=== PATIENT | male | born 1955 | race African-American/Black ===

== ENCOUNTER 2019-03-03 10:43 | Emergency (ER) | payer MEDICARE ==
[~2019-03-03] VITALS: Ht 154.9 cm; Wt 59.0 kg
[~2019-03-03 10:43] MED LIST: FINASTERIDE5 MG ORAL; FLOMAX0.4 MG ORAL; NKM; NORVASC5 MG ORAL
[2019-03-03] MEDS ORDERED: D5NS 1,000 ML IV ONE (10:45)
--- NOTE | 2019-03-03 10:45 | NUR ---
ED Nurse Note: Pt came into ER by ambulance with a c/o abdominal pain with diarrhea, vomiting, and nausea since this morning. Pt states a pain score of 8 on numeric scale. no repiratory distress or cardiac distress noted. Patient placed on husbandry person.
--- NOTE | 2019-03-03 10:46 | NUR ---
ED Nurse Note: ERMD at bedside.
--- NOTE | 2019-03-03 10:49 | NUR ---
ED Nurse Note: EKG being done at bedside.
--- NOTE | 2019-03-03 10:55 | Emergency Room Report ---
History of Present Illness General Chief Complaint: Abdominal Pain Source: Patient Present Illness HPI 64-year-old male history of hypertension, valve repair in the past presents with nausea vomiting diarrhea x1 day no aggravating leaving factors, he endorses some abdominal cramps severity is mild, intermittent no blood in the diarrhea, he endorses some chills but no fevers, no cough no congestion no chest pain patient presents for evaluation Allergies: Coded Allergies: No Known Allergies (Verified , 03/21/10) Patient History Past Medical History: see triage record Reviewed Nursing Documentation: PMH: Agreed; PSxH: Agreed Nursing Documentation-PMH Hx Cardiac Problems: No Hx Hypertension: Yes Hx Cancer: No Hx Gastrointestinal Problems: No - Enlarge Prostate Hx Neurological Problems: Yes Hx Cerebrovascular Accident: Yes - 2008 Hx Transient Ischemic Attacks: Yes Review of Systems All Other Systems: negative except mentioned in HPI Physical Exam Vital Signs Date Time Temp Pulse Resp B/P (MAP) Pulse Ox O2 Delivery O2 Flow Rate FiO2 03/03/19 10:26 97.9 70 19 196/100 (132) 92 Room Air Sp02 EP Interpretation: reviewed, normal General Appearance: well appearing, no apparent distress, alert Head: normocephalic, atraumatic Eyes: bilateral eye PERRL, bilateral eye EOMI ENT: uvula midline, dry mucus membranes Neck: supple, thyroid normal, supple/symm/no masses Respiratory: lungs clear, no respiratory distress, no retraction, no accessory muscle use Cardiovascular #1: normal peripheral pulses, regular rate, rhythm, no edema, no gallop, no murmur Gastrointestinal: non tender, soft, no guarding, no rebound Musculoskeletal: normal inspection Neurologic: alert, oriented x3 Psychiatric: mood/affect normal Skin: no rash, warm/dry Medical Decision Making Diagnostic Impression: Primary Impression: Gastroenteritis ER Course 64-year-old male presents with vague abdominal pain concerning for possible gastroenteritis versus diverticulitis versus cholelithiasis versus appendicitis Patient given fluid rehydration, labs nonfocal Patient found to have no acute processes on CT patient most likely with a viral gastroenteritis Abdominal return precautions discussed Supportive care follow-up with PCP Laboratory Tests Test 03/03/19 11:00 03/03/19 12:50 White Blood Count 7.6 K/UL (4.8-10.8) Red Blood Count 6.61 M/UL (4.70-6.10) H Hemoglobin 18.3 G/DL (14.2-18.0) *H Hematocrit 55.7 % (42.0-52.0) H Mean Corpuscular Volume 84 FL (80-99) Mean Corpuscular Hemoglobin 27.6 PG (27.0-31.0) Mean Corpuscular Hemoglobin Concent 32.8 G/DL (32.0-36.0) Red Cell Distribution Width 11.4 % (11.6-14.8) L Platelet Count 127 K/UL (150-450) L Mean Platelet Volume 9.0 FL (6.5-10.1) Neutrophils (%) (Auto) % (45.0-75.0) Lymphocytes (%) (Auto) % (20.0-45.0) Monocytes (%) (Auto) % (1.0-10.0) Eosinophils (%) (Auto) % (0.0-3.0) Basophils (%) (Auto) % (0.0-2.0) Differential Total Cells Counted 100 Neutrophils % (Manual) 90 % (45-75) H Lymphocytes % (Manual) 8 % (20-45) L Monocytes % (Manual) 2 % (1-10) Eosinophils % (Manual) 0 % (0-3) Basophils % (Manual) 0 % (0-2) Band Neutrophils 0 % (0-8) Platelet Estimate Decreased L Platelet Morphology Normal Red Blood Cell Morphology Normal Sodium Level 143 MMOL/L (136-145) Potassium Level 4.0 MMOL/L (3.5-5.1) Chloride Level 105 MMOL/L (98-107) Carbon Dioxide Level 29 MMOL/L (21-32) Anion Gap 9 mmol/L (5-15) Blood Urea Nitrogen 12 mg/dL (7-18) Creatinine 0.9 MG/DL (0.55-1.30) Estimate Glomerular Filtration Rate > 60 mL/min (>60) Glucose Level 143 MG/DL (74-106) H Calcium Level 8.6 MG/DL (8.5-10.1) Total Bilirubin 1.2 MG/DL (0.2-1.0) H Direct Bilirubin 0.3 MG/DL (0.0-0.3) Aspartate Amino Transferase (AST) 24 U/L (15-37) Alanine Aminotransferase (ALT) 33 U/L (12-78) Alkaline Phosphatase 108 U/L (46-116) Total Protein 7.2 G/DL (6.4-8.2) Albumin 3.9 G/DL (3.4-5.0) Globulin 3.3 g/dL Albumin/Globulin Ratio 1.2 (1.0-2.7) Lipase 64 U/L (73-393) L Urine Color Pale yellow Urine Appearance Clear Urine pH 8 (4.5-8.0) Urine Specific [place] 1.010 (1.005-1.035) Urine Protein Negative (NEGATIVE) Urine Glucose (UA) Negative (NEGATIVE) Urine Ketones 1+ (NEGATIVE) H Urine Blood Negative (NEGATIVE) Urine Nitrite Negative (NEGATIVE) Urine Bilirubin Negative (NEGATIVE) Urine Urobilinogen Normal MG/DL (0.0-1.0) Urine Leukocyte Esterase Negative (NEGATIVE) Microbiology Date/Time Source Procedure Growth Status 03/03/19 11:00 Nasal Nares - Final Complete 03/03/19 11:00 Nasal Nares - Final Complete EKG Diagnostic Results EKG Time: 10:49 EP Interpretation: NSR, rate 82, QTc 457, no acute ST elevations, right axis dev Rhythm Strip Diag. Results Rhythm Strip Time: 10:55 EP Interpretation: yes Rate: 82 Rhythm: NSR, no PVC's, no ectopy CT/MRI/US Diagnostic Results CT/MRI/US Diagnostic Results : Impression Procedure: CT Abdomen Pelvis w/Contrast Indication: Abdominal pain Technique: Continuous helical transaxial imaging of the abdomen and pelvis was obtained from the lung bases to the pubic symphysis during intravenous contrast administration. Coronal 2-D reformats were also obtained. Study obtained in a Siemens sensation [address] Automatic Exposure Control was utilized. Total Dose length Product (DLP): 658.[address] Dose Index Volume (CTDIvol): 4.3 mGy Comparison: None Findings: The lung bases are clear. There is a moderate scoliosis of the thoracolumbar spine. Multiple gallstones are noted. There is a hiatal hernia. Excreted contrast demonstrated within the collecting system bilaterally. This precludes identification of small stones within the kidney or collecting system. No obvious abnormalities of the pancreas spleen or liver are identified. The appendix is seen and appears normal. There is no evidence of bowel obstruction, free fluid or free air. Aorta is mildly calcified. Tiny hypodensity in the right kidney is too small to characterize adequately. There is a left inguinal hernia containing fat. There may be mild thickening of the wall the urinary bladder. IMPRESSION: Cholelithiasis Normal appendix Left inguinal hernia containing fat. Thickened urinary bladder wall. Consider cystitis. Atherosclerotic vascular disease Moderate scoliosis Small hiatal hernia Tiny hypodensity in the right kidney too small to characterize The CT scanner at [facility] is accredited by the [employer] and the scans are performed using dose optimization techniques as appropriate to a performed exam including Automatic Exposure control. Dictated By: Mike Gamino MD Electronically Signed By: Mike Gamino MD Signed Date/Time 03/03/19 4270 CC: Aman Kumar MD Last Vital Signs Date Time Temp Pulse Resp B/P (MAP) Pulse Ox O2 Delivery O2 Flow Rate FiO2 03/03/19 10:26 97.9 70 19 196/100 (132) 92 Room Air Disposition: HOME, SELF-CARE Condition: Stable Scripts Dicyclomine Hcl* (DICYCLOMINE HCL*) 10 Mg Capsule 10 MG ORAL QID PRN for Abdominal cramps, #20 CAP Prov: Aman Kumar MD 03/03/19 Referrals: [facility]. [facility] Patient Instructions: Abdominal Pain, Adult, Viral Gastroenteritis, Adult Additional Instructions: The patient was provided with discharge instructions, notified to follow-up with a primary care doctor and or specialist in the next 24-48 hours, and to return to the ED if they have worsening of their symptoms. Please note that this report is being documented using [employer] (formerly [employer]) technology. This can lead to erroneous entry secondary to incorrect interpretation by the dictating instrument. Aman Kumar MD Mar 03, 2019 10:55
[2019-03-03] MEDS ORDERED: Dicyclomine HCl 10mg/5ml oral soln ORAL ONE (11:00)
[2019-03-03] MEDS ORDERED: Omnipaque-300 100ml vial INJ PRN (11:00)
[2019-03-03 11:17] LABS: HEMATOCRIT 55.7 % (42.0-52.0); MEAN CORPUSCULAR VOLUME 84 FL (80-99); PLATELET COUNT 127 K/UL (150-450); RED BLOOD COUNT 6.61 M/UL (4.70-6.10); RED CELL DISTRIBUTION WIDTH 11.4 % (11.6-14.8); WHITE BLOOD COUNT 7.6 K/UL (4.8-10.8)
[2019-03-03 11:20] LABS: HEMOGLOBIN 18.3 G/DL (14.2-18.0)
--- NOTE | 2019-03-03 11:25 | NUR ---
ED Nurse Note: RN called [facility] pharmacy at [facility] and obtained patient's medication. Given to HAYLEE Bass.
--- NOTE | 2019-03-03 11:25 | NUR ---
ED Nurse Note: Zofran 4mg IVP wasted.
[2019-03-03 11:40] VITALS: BP 189/99
[2019-03-03 11:40] LABS: ANION GAP 9 mmol/L (5-15); BLOOD UREA NITROGEN 12 mg/dL (7-18); CALCIUM 8.6 MG/DL (8.5-10.1); CARBON DIOXIDE 29 MMOL/L (21-32); CHLORIDE 105 MMOL/L (98-107); CREATININE 0.9 MG/DL (0.55-1.30); SODIUM 143 MMOL/L (136-145)
[2019-03-03 11:52] LABS: ALANINE AMINOTRANSFERASE 33 U/L (12-78); ALBUMIN 3.9 G/DL (3.4-5.0); ALBUMIN/GLOBULIN RATIO 1.2 (1.0-2.7); ALKALINE PHOSPHATASE 108 U/L (46-116); ASPARTATE AMINO TRANSFERASE 24 U/L (15-37); BILIRUBIN,TOTAL 1.2 MG/DL (0.2-1.0)
[2019-03-03 11:53] LABS: BILIRUBIN,DIRECT 0.3 MG/DL (0.0-0.3)
--- NOTE | 2019-03-03 11:53 | NUR ---
ED Nurse Note: Pt BP: 189/99 and asymptomatic. Pt stated he didnt take his BP medication this morning. ERMD Dr. Kumar made aware. Educated patient to take at home blood pressure medications per MD order.
--- NOTE | 2019-03-03 12:12 | NUR ---
to ct scan via [facility]
[2019-03-03 13:00] VITALS: BP 168/97
--- NOTE | 2019-03-03 13:12 | Diagnostic Imaging Report ---
Indication: Abdominal pain Technique: Continuous helical transaxial imaging of the abdomen and pelvis was obtained from the lung bases to the pubic symphysis during intravenous contrast administration. Coronal 2-D reformats were also obtained. Study obtained in a Siemens sensation [address] Automatic Exposure Control was utilized. Total Dose length Product (DLP): 658.[address] Dose Index Volume (CTDIvol): 4.3 mGy Comparison: None Findings: The lung bases are clear. There is a moderate scoliosis of the thoracolumbar spine. Multiple gallstones are noted. There is a hiatal hernia. Excreted contrast demonstrated within the collecting system bilaterally. This precludes identification of small stones within the kidney or collecting system. No obvious abnormalities of the pancreas spleen or liver are identified. The appendix is seen and appears normal. There is no evidence of bowel obstruction, free fluid or free air. Aorta is mildly calcified. Tiny hypodensity in the right kidney is too small to characterize adequately. There is a left inguinal hernia containing fat. There may be mild thickening of the wall the urinary bladder. IMPRESSION: Cholelithiasis Normal appendix Left inguinal hernia containing fat. Thickened urinary bladder wall. Consider cystitis. Atherosclerotic vascular disease Moderate scoliosis Small hiatal hernia Tiny hypodensity in the right kidney too small to characterize The CT scanner at [facility] is accredited by the [employer] and the scans are performed using dose optimization techniques as appropriate to a performed exam including Automatic Exposure control.
[2019-03-03 13:38] LABS: APPEARANCE,URINE CLEAR; BILIRUBIN, URINE NEGATIVE (NEGATIVE); COLOR,URINE PALE YELLOW; GLUCOSE, URINE (UA) NEGATIVE (NEGATIVE); KETONES,URINE 1+ (NEGATIVE); LEUKOCYTE ESTERASE ,URINE NEGATIVE (NEGATIVE); NITRITE,URINE NEGATIVE (NEGATIVE); PH,URINE 8 (4.5-8.0); PROTEIN,URINE NEGATIVE (NEGATIVE); UROBILINOGEN,URINE NORMAL MG/DL (0.0-1.0)
--- NOTE | 2019-03-03 13:38 | NUR ---
Lorrie sterling in EDM - 03/03/19 at 1343 by SHERIN ED Nurse Note: Caregiver, Fatou here with patient.
--- NOTE | 2019-03-03 13:41 | NUR ---
ED Nurse Note: Pt is aaox4, no signs of respiratory and cardiovascular distress noted. Patient lying in bed and pt states pain is a 4 out of 10.
[2019-03-03] MEDS ORDERED: DICYCLOMINE HCL10 MG ORAL (13:49)
[2019-03-03 14:00] VITALS: BP 168/97
--- NOTE | 2019-03-03 14:00 | NUR ---
ER DISCHARGE NOTE: Patient is cleared to be discharged per ERMD Dr. Kumar, pt is aox4, on room air, with stable vital signs. pt was given dc and prescription instructions, pt was able to verbalize understanding, pt id band and iv site removed without complications. pt is able to ambulate with steady gait. pt took all belongings.
[2019-03-03] MEDS ORDERED: HYDROCHLOROTHIA25 MG ORAL (15:10)
== END 2019-03-03 14:00 | disposition home or self-care (01) ==
LOC: EDBD 10:43 → EMR 12:17
DX: K52.9 Noninfective gastroenteritis and colitis, unspecified (principal); I10 Essential (primary) hypertension; Z86.73 Personal history of transient ischemic attack (TIA), and cerebral infarction without residual deficits; K80.20 Calculus of gallbladder without cholecystitis without obstruction; K40.90 Unilateral inguinal hernia, without obstruction or gangrene, not specified as recurrent; M41.9 Scoliosis, unspecified; K44.9 Diaphragmatic hernia without obstruction or gangrene
CPT/HCPCS: 36415; 74177; 80053; 81003; 82248; 83690; 85007; 85025; 86710; 93005; 96361; 96374; 99284; J2405; J7030; Q9967